=== PATIENT | female | born 2005 | race Caucasian/White ===

== ENCOUNTER → 2025-09-27 | Emergency (ER) | payer BC ==
[~2025-09-27] VITALS: Ht 157.5 cm; Wt 77.1 kg
[~2025-09-27] MED LIST: ACETAMINOPHEN 500 MG GEL..CAP PO ONE; DEXAMETHASONE SODIUM PHOSPHATE 4 MG/ML VIAL IM ONE; DEXAMETHASONE SODIUM PHOSPHATE 4 MG/ML VIAL ONE; KETOROLAC TROMETHAMINE 60 MG VIAL IM ONE
== END | disposition left against medical advice (07) ==
LOC: ER 18:39
DX: H92.01 Otalgia, right ear (principal); F41.8 Other specified anxiety disorders; G43.909 Migraine, unspecified, not intractable, without status migrainosus; Z88.8 Allergy status to other drugs, medicaments and biological substances; J06.9 Acute upper respiratory infection, unspecified